=== PATIENT | female | born 1965 | race Caucasian/White ===

== ENCOUNTER 2017-07-26 22:28 | Emergency (ER) | payer SELFPAY ==
[~2017-07-26] VITALS: Ht 152.4 cm; Wt 74.8 kg
[2017-07-26] MEDS ORDERED: DIPH25CA58 PO (23:54)
[2017-07-26] MEDS ORDERED: PRED50TA PO (23:54)
--- NOTE | 2017-07-26 23:54 | PHYS DOC ---
Adult General Chief Complaint Chief Complaint: INSECT BITE HPI HPI Patient is a 4-year-old female who presents here today concerned that she might have an insect bites. Patient thought that she might have scabies flashlights that she has taken a shower with medication to treat lice. Patient reports that since has been noticing a rash on her skin and thinks that there are stuff crawling out of her skin. Patient has any other symptomology. Patient reports the rash itches. Patient has any fevers shakes chills nausea vomiting diarrhea chest pain shortness of breath. Patient reports that she slept a friend's house yesterday and used her blanket. Review of systems: Constitutional: Denies fever or chills Eyes: Denies change in visual acuity, redness, or eye pain HENT: Denies nasal congestion or sore throat Respiratory: Denies cough or shortness of breath All other systems were reviewed and found to be within normal limits, except as documented in this note. Physical exam: Constitutional: Well developed, well nourished, no acute distress, non-toxic appearance. HENT: Normocephalic, atraumatic, bilateral external ears normal, nose normal. Eyes: PERRLA, EOMI, conjunctiva normal, no discharge. Neck: Normal range of motion, no tenderness, supple, no stridor. Cardiovascular: Heart rate regular rhythm, Lungs & Thorax: Bilateral breath sounds clear to auscultation Abdomen: No abdominal distention. Skin: Warm, dry, no erythema, rash noted diffusely throughout skin. Description consistent with bedbugs. Distribution consistent with scabies. There are no bug swelling out of her skin the areas that she is putting out appear to be her own skin rashes tried up and flaking. Back: Normal spinal curvature Extremities: No tenderness, no cyanosis, no clubbing, ROM intact, no edema. Neurologic: Alert and oriented X 3, normal motor function, normal sensory function, no focal deficits noted. Psychologic: Affect normal, judgement normal, mood normal. Assessment and plan: 1. Nonspecific rash of unclear etiology. Patient was prescribed prednisone and Benadryl. Patient instructed to follow-up with her doctor within the next several days if the rash is not resolved. This rash does not appear to be consistent with lupus, Melendez-Greg. EKG EKG [] Radiology/Procedures Radiology/Procedures [] Course & Med Decision Making Course & Med Decision Making Pertinent Labs and Imaging studies reviewed. (See chart for details) [] Dragon Disclaimer Dragon Disclaimer This electronic medical record was generated, in whole or in part, using a voice recognition dictation system. Departure Departure: Impression: Primary Impression: Skin rash Additional Impression: Allergic reaction Disposition: HOME, SELF-CARE Condition: STABLE Referrals: PCP,NO (PCP) Patient Instructions: Rash Scripts Prednisone (PREDNISONE) 50 Mg Tablet 1 TAB PO DAILY, #5 TAB Prov: LINDA AGARWAL MD 07/26/17 Diphenhydramine Hcl (BENADRYL) 25 Mg Capsule 2 CAP PO QHS, #20 CAP 2 Refills Prov: LINDA AGARWAL MD 07/26/17 Problem Qualifiers LINDA AGARWAL MD Jul 26, 2017 23:54
[2017-07-27] MEDS ORDERED: FAMOTIDINE 20 MG TABLET PO ONE (00:30)
[2017-07-27] MEDS ORDERED: diphenhydrAMINE HCL 25 MG CAPSULE PO ONE ×2 (00:30→00:36)
[2017-07-27] MEDS ORDERED: predniSONE 20 MG TABLET PO ONE (00:30)
[2017-07-27 00:33] VITALS: BP 109/61
[2017-07-27] MEDS ORDERED: FAMOTIDINE 20 MG TABLET ONE (00:36)
== END 2017-07-27 00:43 | disposition home or self-care (01) ==
LOC: ER 22:28
DX: T78.49XA Other allergy, initial encounter (principal); X58.XXXA Exposure to other specified factors, initial encounter
CPT/HCPCS: 99284; J7512; Q0163

== ENCOUNTER → 2018-03-14 | Outpatient (CLI) | payer OTHER ==
[~2018-03-14] MED LIST: DIPH25CA58 PO; PRED50TA PO
== END | disposition home or self-care (01) ==
LOC: MAMMO 07:54
PROVIDERS: ATTEND Physician Assistant
DX: Z12.31 Encounter for screening mammogram for malignant neoplasm of breast (principal)
CPT/HCPCS: 77067

== ENCOUNTER → 2018-03-29 | Outpatient (CLI) | payer OTHER ==
--- NOTE | 2018-03-29 12:37 | RAD ---
EXAM: Left shoulder, 3 views. HISTORY: Pain. COMPARISON: None. FINDINGS: 3 views of the left shoulder obtained. There is no fracture, dislocation or subluxation. There is slight calcification of the rotator cuff insertion along the greater tuberosity. IMPRESSION: No acute osseous finding. Electronically signed by: Zara Chahal MD (03/29/2018 12:34 PM) [id number]
== END | disposition home or self-care (01) ==
LOC: PMG 09:55
PROVIDERS: ATTEND Physician Assistant
DX: M25.512 Pain in left shoulder (principal)
CPT/HCPCS: 73030

== ENCOUNTER 2019-08-10 04:41 | Emergency (ER) | payer BC, OTHER ==
[~2019-08-10] VITALS: Ht 152.4 cm; Wt 75.0 kg
[2019-08-10] MEDS ORDERED: KETOROLAC 60 MG/2 ML VIAL. IM ONE ×2 (05:25→06:00)
--- NOTE | 2019-08-10 05:25 | PHYS DOC ---
Past History Past Medical History: Asthma Past Surgical History: Hysterectomy, Tubal ligation Additional Past Surgical Histo: cyst removed from rt wrist Alcohol Use: None Drug Use: Methamphetamine Social History Narrative: quit 8 yrs ago Adult General Chief Complaint Chief Complaint: BACK PAIN - NO INJURY HPI HPI Patient is a 54-year-old female who presented to ER today for evaluation of low back pain started 3 days ago. Patient denies any injury, no bowel or bladder incontinence. Patient denies any urinary symptom, no frequency, no pain with urination. Patient denies any abdominal pain, no nausea vomiting. Patient says she got a spring box mattress at [facility] 2 weeks ago and she started sleeping on it and then she started having low back pain since 3 days. Pain get worse with any kind of movement or laying down flat on her back. No weakness or numbness in her lower extremity, no pain radiation to her lower extremity. She denies any fever. She denies any history of low low back pain. All other ROS is negative unless otherwise noted in HPI Review of Systems Review of Systems See above Allergies Allergies Allergies Coded Allergies Type Severity Reaction Last Updated Verified Tetanus Vaccines and Toxoid Allergy Intermediate Swelling 08/10/19 Yes Physical Exam Physical Exam See above Constitutional: Well developed, well nourished, no acute distress, non-toxic appearance. [] HENT: Normocephalic, atraumatic, bilateral external ears normal, oropharynx moist, no oral exudates, nose normal. [] Eyes: PERRLA, EOMI, conjunctiva normal, no discharge. [] Neck: Normal range of motion, no tenderness, supple, no stridor. [] Cardiovascular:Heart rate regular rhythm, no murmur [] Lungs & Thorax: Bilateral breath sounds clear to auscultation [] Abdomen: Bowel sounds normal, soft, no tenderness, no masses, no pulsatile masses. [] Skin: Warm, dry, no erythema, no rash. [] Back: there is muscle spasm and tenderness to palpation around L4/L5/S1 AREA. NO BONY STEP OFF. NO RASH. NO CVA TENDERNESS. Extremities: No tenderness, no cyanosis, no clubbing, ROM intact, no edema. [] Neurologic: Alert and oriented X 3, normal motor function, normal sensory function, no focal deficits noted. [] Psychologic: Affect normal, judgement normal, mood normal. [] Current Patient Data Vital Signs Vital Signs Date Time Temp Pulse Resp B/P (MAP) Pulse Ox O2 Delivery O2 Flow Rate FiO2 08/10/19 04:55 97.8 67 20 125/45 (71) 98 Room Air EKG EKG [] Radiology/Procedures Radiology/Procedures [][address] [address] IMAGING REPORT Signed PATIENT: SOFY ART ACCOUNT: [id number] : 1965 LOCATION: ER AGE: 54 SEX: F EXAM STATUS: REG ER ORD. PHYSICIAN: MELISSA CARLSON DO REASON: Severe lower back pain today, no trauma PROCEDURE: LUMBAR SPINE 2-3V Study: LUMBAR SPINE 2-3V Indication: Severe lower back pain. No known injury. Comparison: None. Findings: Transitional lumbosacral anatomy and there are 4 standard lumbar-type vertebral bodies. Straightening of lumbar lordosis. No significant disc space narrowing. Vertebral body height is maintained. Mild lower lumbar facet degeneration. Potential tubal ligation clips. Impression: No acute fracture or advanced degenerative changes. Electronically signed by: TENA FORD MD (08/10/2019 5:51 AM) [facility] DICTATED AND SIGNED BY: TENA FORD MD DATE: 08/10/19 0551 CC: NAMEENA; MELISSA CARLSON DO ~ Course & Med Decision Making Course & Med Decision Making Pertinent Labs and Imaging studies reviewed. (See chart for details) [] Dragon Disclaimer Dragon Disclaimer This electronic medical record was generated, in whole or in part, using a voice recognition dictation system. Departure Departure: Impression: Primary Impression: Lower back pain Disposition: HOME, SELF-CARE Condition: STABLE Referrals: NAMEENA (PCP) please follow up with your doctor on Tuesday for reevaluation. Patient Instructions: Back Pain, Adult Scripts Cyclobenzaprine Hcl (CYCLOBENZAPRINE HCL) 10 Mg Tablet 1 TAB PO TID for muscle spasm, #21 TAB Prov: MELISSA CARLSON DO 08/10/19 Ibuprofen (Ibu) 800 Mg Tablet 1 TAB PO Q8HRS for back pain for 7 Days, #21 TAB 0 Refills Prov: MELISSA CARLSON DO 08/10/19 MELISSA CARLSON DO Aug 10, 2019 05:25
--- NOTE | 2019-08-10 05:54 | RAD ---
Study: LUMBAR SPINE 2-3V Indication: Severe lower back pain. No known injury. Comparison: None. Findings: Transitional lumbosacral anatomy and there are 4 standard lumbar-type vertebral bodies. Straightening of lumbar lordosis. No significant disc space narrowing. Vertebral body height is maintained. Mild lower lumbar facet degeneration. Potential tubal ligation clips. Impression: No acute fracture or advanced degenerative changes. Electronically signed by: TENA FORD MD (08/10/2019 5:51 AM) [facility]
[2019-08-10 05:57] LABS: BACTERIA,URINE 0 /HPF (0-FEW); BILIRUBIN,URINE NEG (NEG); CLARITY,URINE CLEAR; COLOR,URINE YELLOW; GLUCOSE,URINE NEG (NEG); NITRITE,URINE NEG (NEG); RBC,URINE 0 /HPF (0-2); SQUAMOUS EPITHELIAL CELL,UR FEW /LPF; UROBILINOGEN,URINE 0.2 mg/dL (0.2 mg/dL); WBC,URINE OCC /HPF (0-4)
[2019-08-10] MEDS ORDERED: ORPHENADRINE CITRATE 60 MG/2 ML VIAL. IM ONE (06:00)
[2019-08-10] MEDS ORDERED: methylPREDNISolone SOD SUCC PF 125 MG/2 ML VIAL. IM ONE (06:00)
[2019-08-10] MEDS ORDERED: IBUP-577 PO (06:04)
[2019-08-10] MEDS ORDERED: CYCL-331 PO (06:04)
[2019-08-10 06:15] VITALS: BP 107/62
== END 2019-08-10 06:20 | disposition home or self-care (01) ==
LOC: ER 04:41
DX: M54.5 Low back pain (principal); J45.909 Unspecified asthma, uncomplicated; Z90.710 Acquired absence of both cervix and uterus; Z98.51 Tubal ligation status; Z88.7 Allergy status to serum and vaccine
CPT/HCPCS: 72100; 81001; 96372; 99285; J1885; J2360; J2930

== ENCOUNTER → 2020-02-01 | Outpatient (CLI) | payer BC ==
[~2020-02-01] MED LIST changes: +CYCL-331 PO; +IBUP-577 PO
--- NOTE | 2020-02-01 14:17 | RAD ---
DATE: 02/01/2020 1:00 PM EXAM: MAMMO AURELIA TUTU PIERRE, BREAST LEFT HISTORY: Short-term follow-up probably benign asymmetry in the anterolateral left breast. Patient is due for screening. COMPARISON: Bilateral mammogram of of 03/14/2018 and left diagnostic mammogram of 04/17/2018 as well as left breast ultrasound of that same date. TECHNIQUE: Bilateral CC and MLO views of the breasts were performed. Bilateral breast tomosynthesis was performed in CC and MLO projections. In addition, left CC spot compression view was obtained. This study was interpreted with the benefit of Computerized Aided Detection (CAD). Targeted ultrasound of the left breast was then performed. FINDINGS: Breast Density: SCATTERED The breast parenchyma shows scattered fibroglandular densities. Breast parenchyma level B No suspicious masses, microcalcifications or architectural distortion is present to suggest malignancy in either breast. The visualized axillae are unremarkable. The questioned asymmetry did not persist with additional mammographic compression however targeted ultrasound was performed of this area in follow-up to previous ultrasound isn't confirmed benign appearing ridge of fibroglandular tissue with no suspicious sonographic findings. IMPRESSION: No evidence of malignancy. BI-RADS CATEGORY: 1 NEGATIVE RECOMMENDED FOLLOW-UP: 12M 12 MONTH FOLLOW-UP Annual screening mammography is recommended, unless clinically indicated sooner based on symptoms or change in physical exam. PQRS compliance statement: Patient information was entered into a reminder system with a target due date 02/01/2021 for the next mammogram. Mammography is a sensitive method for finding small breast cancers, but it does not detect them all and is not a substitute for careful clinical examination. A negative mammogram does not negate a clinically suspicious finding and should not result in delay in biopsying a clinically suspicious abnormality. "Our facility is accredited by the [employer] Mammography Program."
== END | disposition home or self-care (01) ==
LOC: MAMMO 12:52
PROVIDERS: ATTEND Family Medicine
DX: R92.8 Other abnormal and inconclusive findings on diagnostic imaging of breast (principal); N63.20 Unspecified lump in the left breast, unspecified quadrant
CPT/HCPCS: 76641; 77066; G0279; 77062